=== PATIENT | female | born 1980 | race Two or more races ===

== ENCOUNTER 2019-09-03 15:05 | Emergency (ER) | payer MEDICAID ==
[~2019-09-03] VITALS: Ht 167.6 cm; Wt 70.8 kg
[2019-09-03 15:49] LABS: BASOPHILS % (AUTO) 0.6 % (0.0-2.0); EOSINOPHILS % (AUTO) 1.1 % (0.0-6.0); HEMATOCRIT 28 % (33-45); HEMOGLOBIN 8.3 g/dL (11.5-14.8); LYMPHOCYTES # (AUTO) 1.4 /CMM (0.8-4.8); LYMPHOCYTES % (AUTO) 19.7 % (20.0-44.0); MEAN CORPUSCULAR HGB CONC 30 g/dl (31.0-36.0); MEAN CORPUSCULAR VOLUME 56 fL (82-100); MONOCYTES # (AUTO) 0.5 /CMM (0.1-1.30); MONOCYTES % (AUTO) 7.1 % (2.0-12.0); NEUTROPHILS % (AUTO) 71.5 % (43.0-81.0); PLATELET COUNT (AUTO) 350 /CMM (150-450); RED BLOOD CELL COUNT(AUTO) 4.92 MIL/uL (4.0-5.2)
[2019-09-03 15:56] LABS: CREATININE 0.7 mg/dL (0.6-1.3); POTASSIUM 4.4 mmol/L (3.5-5.1)
[2019-09-03] MEDS ORDERED: IV NS 0.9% 250 ML BAG IV ONE (16:00)
[2019-09-03] MEDS ORDERED: IV NS 0.9% 1,000 ML BAG IV ONE (16:00)
[2019-09-03] MEDS ORDERED: METOCLOPRAMIDE HCL 10 MG/2 ML VIAL IV ONE (16:00)
[2019-09-03] MEDS ORDERED: diphenhydrAMINE HCL 50 MG/ML VIAL IV ONE (16:00)
[2019-09-03 16:02] LABS: ALBUMIN 4.1 g/dL (3.4-5.0); BILIRUBIN,DIRECT 0.1 mg/dL (0.0-0.2); BILIRUBIN,TOTAL 0.4 mg/dL (0.2-1.0); TOTAL PROTEIN, SERUM 8.5 g/dL (6.4-8.2)
[2019-09-03] MEDS ORDERED: diphenhydrAMINE HCL 50 MG/ML VIAL ONE (16:12)
[2019-09-03] MEDS ORDERED: METOCLOPRAMIDE HCL 10 MG/2 ML VIAL ONE (16:13)
--- NOTE | 2019-09-03 16:20 | NUR ---
patient came in due to headache since 08/25/19, on room air, breathing evenly and unlabored. connected to the monitor and pulse ox. kept comfortable, will continue to monitor accordingly.
--- NOTE | 2019-09-03 16:27 | NUR ---
wheeled patient via gurney going to ct scan.
--- NOTE | 2019-09-03 16:34 | NUR ---
patient came back from CT.
[2019-09-03 16:36] LABS: EOSINOPHILS % (MANUAL) 3 % (0-4); LYMPHOCYTES % (MANUAL) 20 % (16-48); MONOCYTES % (MANUAL) 1 % (0-11.0); NEUTROPHILS % (MANUAL) 76 (42-76)
[2019-09-03 17:32] VITALS: BP 128/81
--- NOTE | 2019-09-03 17:33 | NUR ---
Patient discharged to home in stable condition. Written and verbal after care instructions given. Patient verbalizes understanding of instruction.IV removed. Catheter intact and site benign. Pressure and 4x4 applied to site. No bleeding noted.
== END 2019-09-03 17:33 | disposition home or self-care (01) ==
LOC: ER 15:06
DX: D64.9 Anemia, unspecified (principal); R51 Headache; Z88.6 Allergy status to analgesic agent
CPT/HCPCS: 36415; 70450; 80048; 80076; 85025; 85730; 96374; 96375; 99284; J1200; J2765; J7030; J7050

== ENCOUNTER 2019-09-06 21:40 | Emergency (ER) | payer MEDICAID ==
[~2019-09-06] VITALS: Ht 167.6 cm; Wt 70.8 kg
[2019-09-06 22:20] VITALS: BP 129/78
--- NOTE | 2019-09-06 22:34 | NUR ---
B PORTILLO GUTIERREZ IS AT THE BEDSIDE
[2019-09-06] MEDS ORDERED: diphenhydrAMINE HCL 50 MG/ML VIAL ONE (22:51)
[2019-09-06] MEDS ORDERED: PROCHLORPERAZINE EDISYLATE 10 MG/2 ML VIAL ONE (22:52)
[2019-09-06] MEDS ORDERED: PROCHLORPERAZINE EDISYLATE 10 MG/2 ML VIAL IVP ONE (23:00)
[2019-09-06] MEDS ORDERED: diphenhydrAMINE HCL 50 MG/ML VIAL IV ONE (23:00)
[2019-09-06] MEDS ORDERED: IV NS 0.9% 1,000 ML BAG IV ONE (23:00)
== END 2019-09-06 23:58 | disposition home or self-care (01) ==
LOC: ER 21:41
DX: R51 Headache (principal); Z88.6 Allergy status to analgesic agent
CPT/HCPCS: J0780; J1200; J7030